=== PATIENT | female | born 1980 | race Two or more races ===

== ENCOUNTER 2024-12-29 13:16 | Emergency (ER) | payer MEDICAID, OTHER ==
[~2024-12-29] VITALS: Ht 152.4 cm; Wt 58.2 kg
--- NOTE | 2024-12-29 13:33 | ED.PDOC ---
History of Present Illness HPI Comments This is a 44 year old female brought in by police presenting to the ED with chief complaint of hypertension/[facility] check. Police report that the patient was being booked at the [facility] when she was noted to have a systolic blood pressure in the 200s. Police relay that the patient requires medical clearance prior to being booked at the [facility]. Patient denies any and all symptoms at this time and agrees to being treated for her blood pressure. Chief Complaint: Prison Check Time Seen by MD: 13:31 Reviewed Notes: Nurses Notes, Medications, Allergies Allergies: Coded Allergies: NO KNOWN ALLERGIES (Unverified , 12/29/24) Information Source: Patient Mode of Arrival: Police Severity: Moderate Timing: Hours Duration: Since onset Prehospital treatment: None Medication Refill: For: Hypertension Past Medical History PAST MEDICAL HISTORY: Denies Surgical History: Denies all surgeries RAW PRODUCTS DIRECTOR History: No Pertinent RAW PRODUCTS DIRECTOR History Family History Family History: Reviewed,noncontributory to illness Social History Smoker: Non-Smoker Alcohol: Denies ETOH Use Drugs: Denies Drug Use Lives In: Home Constitutional: denies: chills, diaphoresis, fatigue, fever, malaise, sweats, weakness, others EENTM: denies: blurred vision, double vision, ear bleeding, ear discharge, ear drainage, ear pain, ear ringing, eye pain, eye redness, hearing loss, mouth pain, mouth swelling, nasal discharge, nose bleeding, nose congestion, nose pain, photophobia, tearing, throat pain, throat swelling, voice changes, others Respiratory: denies: cough, hemoptysis, orthopnea, SOB at rest, shortness of breath, SOB with excertion, stridor, wheezing, others Cardiovascular: denies: chest pain, dizzy spells, diaphoresis, Dyspnea on exertion, edema, irregular heart beat, left arm pain, lightheadedness, palpitations, PND, syncope, others Gastrointestinal: denies: abdomen distended, abdominal pain, blood streaked bowels, constipated, diarrhea, dysphagia, difficulty swallowing, hematemesis, melena, nausea, poor appetite, poor fluid intake, rectal bleeding, rectal pain, vomiting, others Genitourinary: denies: abnormal vagina bleeding, burning, dyspareunia, dysuria, flank pain, frequency, hematuria, incontinence, pain, , vagina discharge, urgency, others Neurological: denies: dizziness, fainting, headache, left sided numbness, left sided weakness, numbness, paresthesia, pre-existing deficit, right sided numbne ss, right sided weakness, seizure, speech problems, tingling, tremors, weakness, others Musculoskeletal: denies: back pain, gout, joint pain, joint swelling, muscle pain, muscle stiffness, neck pain, others Integumetry: denies: bruises, change in color, change in hair/nails, dryness, laceration, lesions, lumps, rash, wounds, others Allergic/Immunocompromised: denies: Difficulty Healing, Frequent Infections, Hives, Itching, others Hematologic/Lymphatic: denies: anemia, blood clots, easy bleeding, easy bruising, swollen glands, others Endocrine: denies: excessive hunger, excessive sweating, excessive thirst, excessive urination, flushing, intolerance to cold, intolerance to heat, unexplained weight gain, unexplained weight loss, others Psychiatric: denies: anxiety, bipolar disorder, depression, hopeless, panic disorder, schizophrenia, sleepless, suicidal, others All Other Systems: Reviewed and Negative Physical Exam General Appearance: Moderate Distress, Normal HEENT: Normal ENT Inspection, Pharynx Normal, TMs Normal Neck: Full Range of Motion, Non-Tender, Normal, Normal Inspection Respiratory: Chest Non-Tender, Lungs Clear, No Accessory Muscle Use, No Respiratory Distress, Normal Breath Sounds Cardiovascular: No Edema, No JVD, No Murmur, No Gallop, Normal Peripheral Pulses, Regular Rate/Rhythm Breast Exam: Deferred Gastrointestinal: No Organomegaly, Non Tender, No Pulsatile Mass, Normal Bowel Sounds, Soft Genitalia: Deferred Pelvic: Deferred Rectal: Deferred Extremities: No calf tenderness, Normal capillary refill, Normal inspection, Normal range of motion, Non-tender, No pedal edema Musculoskeletal : Apperance: Normal Neurologic: Alert, 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 Was a procedure done?: No Differential Dx Considerations may include: Anemia Electrolyte imbalance X-Ray, Labs, Meds, VS Vital Signs Date Time Temp Pulse Resp B/P (MAP) Pulse Ox O2 Delivery O2 Flow Rate FiO2 12/29/24 15:57 97.8 74 14 164/95 (118) 98 97.8 12/29/24 15:55 164/95 12/29/24 15:02 207/118 12/29/24 15:00 98.2 79 16 207/118 (147) 100 98.2 12/29/24 15:00 79 18 100 Room Air 12/29/24 13:18 98.2 89 16 209/125 98 98.2 Current Medications Medications (Trade) Dose Ordered Sig/Jim Route Start Time Stop Time Status Last Admin Clonidine HCl (Catapres Tablet) 0.2 mg ONCE ONCE PO 12/29/24 13:30 12/29/24 13:31 DC 12/29/24 15:02 Lorazepam (Ativan Tablet) 1 mg ONCE ONCE PO 12/29/24 14:45 12/29/24 14:46 DC 12/29/24 15:01 Patient alert. Blood pressure elevated. Was given clonidine. Saturation pristine on room air. No sign of any injury. Explained to the patient. Was told to follow up with her primary care physician. Was told to come back if there is any problem. Time of 1ST Reevaluation: 14:31 Reevaluation 1ST: Improved Patient Education/Counseling: Diagnosis, Treatment Family Education/Counseling: No Family Present SEPSIS Sepsis Screen Date sepsis recognized/suspect: Dec 29, 2024 Time Sepsis recognized/suspect: 1319 Recent Procedure: No On Antibiotic Therapy: No Respiratory Rate >20: No Heart Rate >90: No Temp<36 C (96.8 F) or >38.3 C: No SBP <90 or MAP <65 mmHG: No New Acute Mental Status Change: No Is the patient on CPAP, BIPAP,: No Vital Signs Date Time Temp Pulse Resp B/P (MAP) Pulse Ox O2 Delivery O2 Flow Rate FiO2 12/29/24 15:57 97.8 74 14 164/95 (118) 98 97.8 12/29/24 15:55 164/95 12/29/24 15:02 207/118 12/29/24 15:00 98.2 79 16 207/118 (147) 100 98.2 12/29/24 15:00 79 18 100 Room Air 12/29/24 13:18 98.2 89 16 209/125 98 98.2 Medications Medications Dose Ordered Sig/Jim Route Start Time Stop Time Status Last Admin Dose Admin Clonidine HCl 0.2 mg ONCE ONCE PO 12/29/24 13:30 12/29/24 13:31 DC 12/29/24 15:02 Lorazepam 1 mg ONCE ONCE PO 12/29/24 14:45 12/29/24 14:46 DC 12/29/24 15:01 Departure 1 Departure Time of Disposition: 14:38 Impression: Primary Impression: Hypertensive emergency Disposition: 01 HOME / SELF CARE / HOMELESS Condition: Good Discharged With: Self Critical Care Note Critical Care Time?: No Stability Stability form required: No Heart Score Heart Score: Heart Score Response (Comments) Value History N/A 0 EKG N/A 0 Age N/A 0 Risk Factors N/A 0 Troponin N/A 0 Total 0 I personally scribed for EDDI ARREOLA MD ([email or web address]) on 12/29/24 at 13:33. Electronically submitted by Pablo Ayers ([email or web address]). EDDI ARREOLA MD Dec 29, 2024 13:33
[2024-12-29] MEDS: LORazepam 0.5 MG TAB PO ONE (15:01)
[2024-12-29] MEDS: LIDOCAINE HCL 2% TOP JELLY 5ML TOP ONE (15:09)
[2024-12-29 15:57] VITALS: BP 164/95; PULSE 74; RESP 14; TEMP 97.8; O2SAT 98
== END 2024-12-29 16:13 | disposition home or self-care (01) ==
LOC: ER 13:16
DX: I16.1 Hypertensive emergency (principal); Z65.3 Problems related to other legal circumstances